=== PATIENT | female | born 1950 ===

== ENCOUNTER 2018-03-27 09:18 | Emergency (ER) | payer MEDICARE ==
[2018-03-27 09:29] VITALS: TEMP 97.4
[2018-03-27 09:31] VITALS: BMI 26.4
--- NOTE | 2018-03-27 09:37 | ED PDOC ---
Arrival/HPI - General Time Seen by Provider: 03/27/18 09:29 Historian: Patient - History of Present Illness Narrative History of Present Illness (Text): 03/27/18 09:33 67yo female with no pmhx who present with complaint of left 5th finger pain s/p trauma an hour ago. States she tripped while going upstairs and injured her finger. States she took OTC aleve [employer]. Denies hitting her head, LOC, headache, any other complaint. she is not on any anticoagulant. Past Medical History - Provider Review Nursing Documentation Reviewed: Yes - Psychiatric Hx Substance Use: No - Surgical History Hx Tubal Ligation: Yes Family/Social History - Physician Review Nursing Documentation Reviewed: Yes Family/Social History: Unknown Family HX Smoking Status: Never Smoked Hx Alcohol Use: No Hx Substance Use: No Allergies/Home Meds Allergies/Adverse Reactions: Allergies tetracycline Adverse Reaction (Verified 03/27/18 09:29) ITCHING YEAST INFECTION Review of Systems - Physician Review All systems were reviewed & negative as marked: Yes - Review of Systems Constitutional: Normal Eyes: Normal ENT: Normal Respiratory: Normal Cardiovascular: Normal Gastrointestinal: Normal Genitourinary Female: Normal Musculoskeletal: Arthralgias (LEft 5th finger pain) Skin: Normal Neurological: Normal Endocrine: Normal Hemo/Lymphatic: Normal Psychiatric: Normal Physical Exam Vital Signs Reviewed: Yes Vital Signs Temp Pulse Resp BP Pulse Ox 03/27/18 10:15 71 17 124/72 99 03/27/18 09:28 97.4 F L 72 18 129/81 100 Temperature: Afebrile Blood Pressure: Normal Pulse: Regular Respiratory Rate: Normal Appearance: Positive for: Well-Appearing, Non-Toxic, Comfortable Pain Distress: None Mental Status: Positive for: Alert and Oriented X 3 - Systems Exam Head: Present: Atraumatic, Normocephalic Pupils: Present: PERRL Extroacular Muscles: Present: EOMI Conjunctiva: Present: Normal Mouth: Present: Moist Mucous Membranes Neck: Present: Normal Range of Motion Respiratory/Chest: Present: Clear to Auscultation, Good Air Exchange. No: Respiratory Distress, Accessory Muscle Use Cardiovascular: Present: Regular Rate and Rhythm, Normal S1, S2. No: Murmurs Abdomen: No: Tenderness, Distention, Peritoneal Signs Back: Present: Normal Inspection Upper Extremity: Present: NORMAL PULSES, Tenderness (LEft 5th finger), Swelling (LEft 5th finger), Neurovascularly Intact. No: Cyanosis, Edema, Normal ROM ( Limited on flexion secondary to pain) Lower Extremity: Present: Normal Inspection. No: Edema Neurological: Present: GCS=15, CN II-XII Intact, Speech Normal Skin: Present: Warm, Dry, Normal Color. No: Rashes Psychiatric: Present: Alert, Oriented x 3, Normal Insight, Normal Concentration Medical Decision Making ED Course and Treatment: 03/27/18 09:54 LEft hand xray - No acute fracture of the 5th finger noted Result was DW the pt. Finger splint placed. Referred to PMD/ortho. - RAD Interpretation Radiology Orders: 03/27/18 09:31 HAND LEFT 5TH DIGIT (FINGER) [RAD] Stat Disposition/Present on Arrival - Present on Arrival Any Indicators Present on Arrival: No History of DVT/PE: No History of Uncontrolled Diabetes: No Urinary Catheter: No History of Decub. Ulcer: No History Surgical Site Infection Following: None - Disposition Have Diagnosis and Disposition been Completed?: Yes Diagnosis: Finger sprain Disposition: HOME/ ROUTINE Disposition Time: 09:55 Patient Plan: Discharge Condition: STABLE Discharge Instructions (ExitCare): Finger Sprain (DC), Common Finger Injuries Additional Instructions: Follow up with your Doctor/Orthopedist Return to ED for any new or worsening symptoms Prescriptions: Ibuprofen [Motrin Tab] 600 mg PO Q6 #20 tab Referrals: Ac Malik MD [Staff Provider] - Follow up with primary
[2018-03-27 10:24] VITALS: BP 124/72; PULSE 71; RESP 17; O2SAT 99
--- NOTE | 2018-03-27 11:35 | RAD ---
PROCEDURE: Left small finger radiographs. HISTORY: finger pain s/p trauma COMPARISON: None. TECHNIQUE: AP radiograph of the left hand, as well as spot oblique and lateral images of left small finger were obtained. FINDINGS: LEFT SMALL FINGER: Left small finger normal, without fracture of focal lesion. Remainder of the left hand (as seen on the AP view) is grossly unremarkable. JOINTS: Normal. SOFT TISSUES: Normal. OTHER FINDINGS: None. IMPRESSION: No acute findings related to/accounting for the clinical presentation.
== END 2018-03-27 10:15 | disposition home or self-care (01) ==
LOC: ED 09:18
DX: S63.617A Unspecified sprain of left little finger, initial encounter (principal); W18.40XA Slipping, tripping and stumbling without falling, unspecified, initial encounter